=== PATIENT | male | born 1995 | race Caucasian/White ===

== ENCOUNTER 2016-05-15 04:40 | Emergency (ER) | payer OTHER ==
[~2016-05-15] VITALS: Ht 167.6 cm; Wt 108.8 kg
[~2016-05-15 04:40] MED LIST: IBUP-1277 PO
[2016-05-15 04:44] VITALS: TEMP 36.9; O2SAT 100; Ht 167.6 cm; Wt 108.8 kg
[2016-05-15] MEDS ORDERED: SODIUM CHLORIDE 0.9% 1000ML 1,000 ML IV STA (04:58)
[2016-05-15] MEDS ORDERED: ONDANSETRON INJ 2 MG/ML 2 ML VIAL IV STA (04:58)
--- NOTE | 2016-05-15 05:14 | EMERGENCY ROOM VISIT NOTE ---
History Report prepared by Angela: Audi Glynn Under the Supervision of: Dr. Tucker Diaz M.D. First contact with patient: 04:48 Chief Complaint: VOMITING Stated Complaint: VOMITING, PAIN Nursing Triage Summary: Pt ate [employer] food and a sub yesterday. Pt started having epigastric pain. He usually vomits and feels better but he's vomited several time and it doesn't feel better. History of Present Illness The patient is a 21 year old male who presents to the Emergency Room with complaints of persistent vomiting that began 11.5 hours prior to arrival. The patient states that he began to vomit and experience pain under his right ribs this evening at 1750. He denies having any diarrhea, and has not observed any blood in the vomit. The patient notes that he experiences vomiting intermittently, and last experienced an episode of this type 6 months ago. This episode is lasting much longer than they have in the past. Source of History: patient Onset: 11.5 hours [employer] P[employer] Position: other (Gastrointestinal ) Quality: other (Vomiting) Timing: other (Persistent) Associated Symptoms: + abdominal pain, No diarrhea Review of Systems See HPI for pertinent positives & negatives. A total of 10 systems reviewed and were otherwise negative. Past Medical & Surgical No pertinent past medical/surgical histories were recorded. Family History No pertinent family histories were recorded. Social History Smoking Status: Former Smoker Marital Status: single Housing Status: lives with family Occupation Status: employed Current/Historical Medications Scheduled Ondasetron Odt (Zofran Odt), 4 MG SL Q6H Allergies Coded Allergies: No Known Allergies (Unverified , NONE, 05/15/16) Physical Exam Vital Signs Date Time Temp Pulse Resp B/P Pulse Ox O2 Delivery O2 Flow Rate FiO2 05/15/16 06:33 95 16 168/109 Room Air 05/15/16 05:37 73 05/15/16 04:44 36.9 93 16 159/102 100 Room Air Physical Exam GENERAL: Patient is a healthy-appearing well-nourished HEAD: Normocephalic atraumatic EYES: Ocular movements intact pupils equal and react to light OROPHARYNX mucous membranes are moist no exudates present no erythema or edema present NECK: Supple no nuchal rigidity CHEST: Good equal expansion LUNGS: Clear and equal to auscultation CARDIAC: Normal S1 and S2 ABDOMEN: Soft nontender no guarding BACK: No CVA tenderness EXTREMITIES: No pain upon palpation normal muscle strength in all groups no clubbing cyanosis or edema NEURO: Patient is following commands is answering questions appropriately. Alert and oriented x3 Cranial Nerves 2-12 grossly intact Medical Decision & Procedures Laboratory Results 05/15/16 05:00 Red Blood Count 5.56, Mean Corpuscular Volume 80.6, Mean Corpuscular Hemoglobin 28.8, Mean Corpuscular Hemoglobin Concent 35.7, Mean Platelet Volume 9.8, Neutrophils (%) (Auto) 90.8, Lymphocytes (%) (Auto) 6.4, Monocytes (%) (Auto) 2.5, Eosinophils (%) (Auto) 0.0, Basophils (%) (Auto) 0.1, Neutrophils # (Auto) 12.10, Lymphocytes # (Auto) 0.86, Monocytes # (Auto) 0.34, Eosinophils # (Auto) 0.00, Basophils # (Auto) 0.01 05/15/16 05:00 Test 05/15/16 05:00 White Blood Count 13.34 K/uL (4.8-10.8) Red Blood Count 5.56 M/uL (4.7-6.1) Hemoglobin 16.0 g/dL (14.0-18.0) Hematocrit 44.8 % (42-52) Mean Corpuscular Volume 80.6 fL (80-100) Mean Corpuscular Hemoglobin 28.8 pg (25-34) Mean Corpuscular Hemoglobin Concent 35.7 g/dl (32-36) Platelet Count 229 K/uL (130-400) Mean Platelet Volume 9.8 fL (7.4-10.4) Neutrophils (%) (Auto) 90.8 % Lymphocytes (%) (Auto) 6.4 % Monocytes (%) (Auto) 2.5 % Eosinophils (%) (Auto) 0.0 % Basophils (%) (Auto) 0.1 % Neutrophils # (Auto) 12.10 K/uL (1.4-6.5) Lymphocytes # (Auto) 0.86 K/uL (1.2-3.4) Monocytes # (Auto) 0.34 K/uL (0.11-0.59) Eosinophils # (Auto) 0.00 K/uL (0-0.5) Basophils # (Auto) 0.01 K/uL (0-0.2) RDW Standard Deviation 38.4 fL (36.4-46.3) RDW Coefficient of Variation 13.3 % (11.5-14.5) Immature Granulocyte % (Auto) 0.2 % Immature Granulocyte # (Auto) 0.03 K/uL (0.00-0.02) Anion Gap 10.0 mmol/L (3-11) Est Creatinine Clear Calc Drug Dose 136.3 ml/min Estimated GFR () 125.0 Estimated GFR (Non- 107.9 BUN/Creatinine Ratio 13.2 (10-20) Calcium Level 9.6 mg/dl (8.5-10.1) Total Bilirubin 0.9 mg/dl (0.2-1) Direct Bilirubin 0.3 mg/dl (0-0.2) Aspartate Amino Transf (AST/SGOT) 26 U/L (15-37) Alanine Aminotransferase (ALT/SGPT) 50 U/L (12-78) Alkaline Phosphatase 68 U/L (45-117) Total Protein 8.3 gm/dl (6.4-8.2) Albumin 4.8 gm/dl (3.4-5.0) Lipase 147 U/L (73-393) Labs reviewed by ED physician. Medications Administered Medications (Trade) Dose Ordered Sig/Nick Route Start Time Stop Time Status Last Admin Dose Admin Sodium Chloride (Nss 1000ml) 1,000 ml @ 999 mls/hr Q1H1M STAT IV 05/15/16 04:58 05/15/16 05:58 DC 05/15/16 05:17 999 MLS/HR Ondansetron HCl (Zofran Inj) 4 mg NOW STAT IV 05/15/16 04:58 05/15/16 05:00 DC 05/15/16 05:17 4 MG Ondansetron HCl (ZOFRAN ODT 4MG Home Pack) 1 homepack UD ONCE PO 05/15/16 06:30 05/15/16 06:31 DC 05/15/16 06:38 1 HOMEPACK ECG Indication: vomiting Rate (beats per minute): 92 Rhythm: normal sinus Findings: no acute ischemic change, no ectopy ED Course 0447: This patient was evaluated and HPI was obtained by the Medical Student prior to my evaluation. 0456: Past medical records reviewed. The patient was evaluated in room B10. A complete history and physical examination was performed. 0458: Ordered Zofran 4 mg IV, Sodium Chloride 1000 mL @ 999 mL/hr IV. 0556: Patient is keeping down a Gatorade at this time. 0630: Ordered Zofran 1 homepack PO. 0632:Upon reexamination the patient is resting comfortably in bed and continuing to keep down fluids. I discussed results and treatment plan with the patient. She verbalizes agreement and understanding. The patient is ready for discharge. Medical Decision The patient's history was concerning for nausea, vomiting, diarrhea, and abdominal pain. Differential diagnosis: Etiologies such as gastroenteritis, food borne illness, infections, appendicitis , diverticulitis, inflammatory bowel disease, obstruction, GI bleed, biliary pathology, as well as others were entertained. This is a 21-year-old male who presents emergency department complaining of nonstop vomiting. The patient reports she's had episodes like this before. An IV was established, patient given normal saline bolus, 4 mg Zofran. He does have an elevation in his white blood count which I believe would be consistent with vomiting. Serial abdominal examinations were performed on the patient while he was in the emergency department and at no tender the patient exhibited abdominal tenderness or surgical abdomen. After some time the patient was trialed with fluids. He was able to keep these down. The patient's abdominal exam remained benign. Based on these findings I feel the patient can be safely discharged home. Impression Primary Impression: Acute gastritis Scribe Attestation The scribe's documentation has been prepared under my direction and personally reviewed by me in its entirety. I confirm that the note above accurately reflects all work, treatment, procedures, and medical decision making performed by me. Departure Information Dispostion Home / Self-Care Prescriptions Ondasetron Odt (ZOFRAN ODT) 4 Mg Tab 4 MG SL Q6H for Nausea, #6 TAB Prov: Tucker Diaz MD 05/15/16 Referrals Jose L Jacobo M.D. (PCP) Forms HOME CARE DOCUMENTATION FORM, IMPORTANT VISIT INFORMATION Patient Instructions My [facility] Additional Instructions You have been examined and treated today on an emergency basis only. This is not a substitute for, or an effort to provide, complete comprehensive medical care. It is impossible to recognize and treat all injuries or illnesses in a single emergency department visit. It is therefore important that you follow up closely with Dr Jacobo. Call as soon as possible for an appointment. Thank you for your time and consideration. I look forward to speaking with you again soon. Please don't hesitate to call us if you have any questions. Problem Qualifiers Primary Impression: Acute gastritis Gastritis type: unspecified gastritis Gastritis bleeding: without bleeding Qualified Codes: K29.00 - Acute gastritis without bleeding
[2016-05-15 05:17] LABS: BASO % 0.1 %; BASO ABS # 0.01 K/uL (0-0.2); COMPLETE YES; HEMATOCRIT 44.8 % (42-52); IG% 0.2 %; LYMPH % 6.4 %; LYMPH ABS # 0.86 K/uL (1.2-3.4); MEAN CELL VOLUME 80.6 fL (80-100); MEAN CORPUSCULAR HEMOGLOBIN 28.8 pg (25-34); MEAN CORPUSCULAR HGB CONC 35.7 g/dl (32-36); MEAN PLATELET VOLUME 9.8 fL (7.4-10.4); MONO % 2.5 %; NEUT % 90.8 %; PLATELET COUNT 229 K/uL (130-400); RED BLOOD COUNT 5.56 M/uL (4.7-6.1); WHITE BLOOD COUNT 13.34 K/uL (4.8-10.8)
[2016-05-15 05:34] LABS: BUN/CREATININE RATIO 13.2 (10-20); CALCIUM 9.6 mg/dl (8.5-10.1); POTASSIUM 4.1 mmol/L (3.5-5.1)
[2016-05-15] MEDS ORDERED: ONDA4TAB10 SL (06:19)
[2016-05-15] MEDS ORDERED: ONDANSETRON HOME PACK 4MG OD TAB PO ONE (06:30)
[2016-05-15 06:33] VITALS: BP 168/109; PULSE 95
== END 2016-05-15 06:41 | disposition home or self-care (01) ==
LOC: C.EDB 04:41
DX: K29.00 Acute gastritis without bleeding (principal); Z87.891 Personal history of nicotine dependence

== ENCOUNTER 2024-07-05 00:16 | Observation (INO) ==
--- NOTE | 2024-07-05 00:59 | Emergency Department Note ---
Impression & Plan Acute cholecystitis Admit ED Provider Note NAME: WYATT JANSEN AGE: 29 SEX: Male INFORMANT: Patient and family ED PROVIDER(S): Babar Go MD CHIEF COMPLAINT: Abdominal pain PLAN: Disposition: Admitted Outpatient prescription management: none Referral: None MEDICAL DECISION MAKING: Patient presented from outside institution with findings consistent with cholecystitis. Patient was evaluated. He was asymptomatic. He was noted to be moderately hypertensive but had no concerning symptoms. He notes that he was on blood pressure medication but had stopped it after the prescription ran out. I did have the [facility] clinical manager his epic chart and the 5 mg medication he alluded to was amlodipine. Patient was given this dose in the ER. He declined analgesia. Patient had an unremarkable CBC and chemistry panel except for slightly elevated bilirubin. General surgery was consulted and requested MRCP and the patient will be admitted under Dr. Starkey's service. Patient was evaluated in the ER and admitted for further management. Despite the oral amlodipine the patient was still hypertensive. I did message Dr. Lalito Pat's BRITANY and discussed a medicine consultation so that he is appropriate for surgery. She also had ordered hydralazine and is following the patient. Care/management discussed with: self storage manager Level of care consideration(s): After review of the information above and other included data, I feel the patient requires escalation of care to admission Triage Nursing notes: reviewed and agree them. Vital Signs: reviewed and remarkable for hypertension Additional History obtained from: Patient's family. Gallbladder problems are common with other family members. Chronic Medical/Social Conditions affecting care: Hypertension Prior/ Outside/ External records reviewed: Outside ED records reviewed from the [facility] from 10/04/2024. The patient had a CT scan and ultrasound consistent with cholecystitis. He had a leukocytosis. Patient did receive IV Rocephin. Differential Diagnosis: Cholecystitis, renal colic, UTI, appendicitis, diverticulitis, mesenteric ischemia, aortic pathology, infections, inflammatory bowel disease, PUD, as well as other pathologies. Diagnostics, independently interpreted by me: ECG: none Cardiac Monitoring: none Medical decision rules: none Imaging studies: Deferred. HPI: 29 year old Male arrives for evaluation of abdominal pain. This started yesterday and is in the right upper quadrant. The patient also notes the following associated symptoms, nausea and vomiting. The patient has seen at the time in hospital and diagnosed with cholecystitis and treated with Toradol and Rocephin for relieving factors. Current pain is rated as 2/10. Patient declines analgesia. The [facility] did contact Dr. Starkey of surgery here and the patient was accepted for transfer. There was an issue with transportation and the patient was signed out AMA and came private vehicle to the ER. Pt denies LOC, headache, flulike symptoms, visual changes, neck pain, chest pain, breathing difficulties, back pain, melena, hematochezia, urinary symptoms, rash, or other complaints.. PAST MEDICAL HISTORY: See Below, umbilical hernia PAST SURGICAL HISTORY: See Below, umbilical hernia repair SOCIAL HISTORY: See Below, smoker HOME MEDICATIONS: See Below ALLERGIES: See Below VITALS: See Below PHYSICAL EXAMINATION: GENERAL: Awake, alert, well-appearing, in no distress HENT: Normocephalic, atraumatic. Oropharynx unremarkable. EYES: Normal conjunctiva. Sclera non-icteric. NECK: Inspection normal. Non-tender. Supple. No nuchal rigidity. FROM. No masses. RESPIRATORY: Clear to auscultation. No wheezes. No rales. Normal respiratory effort. CARDIAC: Normal rate. Normal rhythm. No murmurs. No rubs. Extremities warm and well perfused. Pulses equal. No JVD. GI: Soft, non-distended. Right upper quadrant tenderness to palpation. No rebound or guarding. No masses. RECTAL: Deferred. MUSCULOSKELETAL: Atraumatic. Chest examination reveals no tenderness. The back is symmetrical on inspection without obvious abnormality. There is no CVA tenderness to palpation. No joint edema. LOWER EXTREMITIES: Calves are equal size bilaterally and non-tender. No edema. No discoloration. NEURO: Normal sensorium. No sensory or motor deficits noted. SKIN: No rash or jaundice noted. PROCEDURES: none CRITICAL CARE: none OBSERVATION NOTE: none Past Med/Surg History Problem List (Updated 07/05/24 @ 00:59 by Babar Go MD) Acute cholecystitis (Acute) Umbilical bleeding (Acute) Social History Smoking Status: Current every day smoker Preferred Language: Ukrainian Feels Safe at Home: Yes Allergies Allergies Allergy/AdvReac Type Severity Reaction Status Date / Time No Known Allergies Allergy NONE Unverified 05/15/16 04:46 Results & Data (ED) Vital Signs Vital Signs - 24 hr 07/05/24 00:20 07/05/24 00:50 07/05/24 01:00 Temperature 36.4 C L Temperature Source Temporal Artery Scan Pulse Rate 88 84 72 Respiratory Rate 19 18 Respiratory Effort / Characteristics Non-Labored Spontaneous Respiratory Depth Normal Blood Pressure 198/120 H 186/117 H Blood Pressure Mean 146 147 Pulse Oximetry 98 97 Oxygen Delivery Method Room Air Sepsis Recent Fever Within 48 Hours No Sepsis New/Unexplained Change in Mental Status N/A Sepsis Action Taken by Nursing No Action Required Laboratory Data 07/05/24 00:42 07/05/24 00:42 Lab Results 07/05/24 Range/Units 00:42 WBC 10.24 (4.8-10.8) K/ul RBC 5.41 (4.70-6.10) M/uL Hgb 15.1 (14.0-18.0) g/dl Hct 45.5 (42.0-52.0) % MCV 84.1 (80.0-100.0) fL MCH 27.9 (25.0-34.0) pg MCHC 33.2 (32.0-36.0) g/dL RDW Std Deviation 42.6 (36.4-46.3) fL RDW Coeff of Boo 14.0 (11.5-14.5) % Plt Count 241 (130-400) K/uL MPV 9.6 (9.4-12.4) fL Immature Gran % (Auto) 0.3 % Neut % (Auto) 72.3 % Lymph % (Auto) 17.8 % [place] % (Auto) 9.2 % Eos % (Auto) 0.2 % Baso % (Auto) 0.2 % Neut # (Auto) 7.41 H (1.40-6.50) K/uL Lymph # (Auto) 1.82 (1.20-3.40) K/uL [place] # (Auto) 0.94 H (0.11-0.59) K/uL Eos # (Auto) 0.02 (0.00-0.50) K/uL Baso # (Auto) 0.02 (0.00-0.20) K/uL Immature Gran # (Auto) 0.03 (0.01-0.20) K/uL Sodium 138 (136-145) mmol/L Potassium 4.3 (3.5-5.1) mmol/L Chloride 101 (98-107) mmol/L Carbon Dioxide 30 (21-32) mmol/L Anion Gap 7 (3-11) BUN 11 (6-23) mg/dl Creatinine 0.97 (0.6-1.4) mg/dl Est Cr Clr Drug Dosing 138.0 ml/min eGFR 109.05 BUN/Creatinine Ratio 11.3 (10-20) Glucose 101 H (70-99(Fasting)) mg/dl Calcium 9.2 (8.6-10.3) mg/dl Total Bilirubin 1.4 H (0.2-1.0) mg/dl AST 23 (13-39) U/L ALT 28 (7-52) U/L Alkaline Phosphatase 49 (34-104) U/L Total Protein 7.2 (6.0-8.3) gm/dl Albumin 4.6 (3.4-5.0) gm/dl Globulin 2.6 (2.5-4.0) gm/dl Albumin/Globulin Ratio 1.8 (0.9-2) Lipase 39 (11-82) U/L Administered Medications Sodium Chloride (Nss) 1,000 mls @ 125 mls/hr IV .Q8H TERRY Stop: 07/06/24 00:44 Last Admin: 07/05/24 01:06 Dose: 125 mls/hr Documented By: DANILO Discontinued Medications Amlodipine Besylate (Amlodipine Besylate 5 Mg Tab) 5 mg PO NOW ONE Stop: 07/05/24 00:51 Last Admin: 07/05/24 01:05 Dose: 5 mg Documented By: DANILO Lorazepam (Lorazepam 2 Mg/1 Ml Vial) 0.5 mg IV NOW STA Stop: 07/05/24 01:28 Last Admin: 07/05/24 01:45 Dose: 0.5 mg Documented By: DANILO Discharge Plan Visit Data Chief Complaint: Abdominal Pain Stated Complaint: ABD PAIN,VOMITING ED Provider: Babar Go Discharge Problem: Acute cholecystitis Patient Disposition: Admitted As Inpatient Discharge Instructions Interventions: ED Discharge Assessment Last Done: 07/05/24 02:39
[2024-07-05] MEDS: amLODIPine BESYLATE 5 MG TAB PO ONE (01:05)
[2024-07-05] MEDS: SODIUM CHLORIDE 0.9% 1,000 ML IV SCH (01:06)
[2024-07-05 01:11] LABS: Basophils # (auto) 0.02 K/uL (0.00-0.20); Basophils % (auto) 0.2 %; Eosinophils # (auto) 0.02 K/uL (0.00-0.50); Eosinophils % (auto) 0.2 %; Hematocrit (blood only) 45.5 % (42.0-52.0); Hemoglobin 15.1 g/dl (14.0-18.0); Immature Granulocytes # (auto) 0.03 K/uL (0.01-0.20); Immature Granulocytes % (auto) 0.3 %; Lymphocytes # (auto) 1.82 K/uL (1.20-3.40); Lymphocytes % (auto) 17.8 %; Mean Corpuscular Hemoglobin 27.9 pg (25.0-34.0); Mean Corpuscular Hgb Conc 33.2 g/dL (32.0-36.0); Mean Corpuscular Volume 84.1 fL (80.0-100.0); Mean Platelet Volume 9.6 fL (9.4-12.4); Monocytes # (auto) 0.94 K/uL (0.11-0.59); Monocytes % (auto) 9.2 %; Neutrophils # (auto) 7.41 K/uL (1.40-6.50); Neutrophils % (auto) 72.3 %; Platelet Count 241 K/uL (130-400); RDW Standard Deviation 42.6 fL (36.4-46.3); Red Blood Count 5.41 M/uL (4.70-6.10); White Blood Count 10.24 K/ul (4.8-10.8)
[2024-07-05 01:13] LABS: Albumin Globulin Ratio 1.8 (0.9-2); Albumin Level 4.6 gm/dl (3.4-5.0); BUN Creatinine Ratio 11.3 (10-20); Bilirubin,Total 1.4 mg/dl (0.2-1.0); Calcium 9.2 mg/dl (8.6-10.3); Globulin 2.6 gm/dl (2.5-4.0); Potassium 4.3 mmol/L (3.5-5.1); Total Protein 7.2 gm/dl (6.0-8.3)
--- NOTE | 2024-07-05 01:38 | History & Physical Report ---
Date of Service July 05, 2024 Assessment & Plan (1) Acute cholecystitis: Plan: Patient is a 29-year-old male with concerns of acute cholecystitis . The patient found to have slightly elevated Tbili of 1.4. Will order an MRCP to further evaluate for choledocholithiasis, if positive will have to consult GI for possible ERCP. However if MRCP is negative will proceed with surgical intervention. For now the patient will be admitted to the surgical service to med/surg floor. Keep NPO for now, IV hydration, pain control, IV antibiotic coverage with Zosyn, and Zofran as needed for nausea. Will also trend LFTs. as above. MRCP neg for choledocholithiasis. discussed option/risks ( bleeding/infection/blood clots/injury to a bile duct or other organ etc...) questions answered. will proceed with lap kimo History of Present Illness Chief Complaint: Abdominal pain The patient is a 29-year-old male who presented from outside hospital for complaints of abdominal pain since Monday. The patient states his pain started shortly after eating a hamburger and the pain is located in his right upper quadrant and epigastric region. He states the pain has been persistent and does radiate into his back at times. He started with nausea and multiple episodes of vomiting that started yesterday. He was worked up at [facility] emergency room and imaging was consistent with acute cholecystitis and labs revealed an elevated WBC at 12.5 and elevated Tbili of 1.4. The patient original was going to be direct admitted however the patient preferred to come to our facility via private vehicle and not S so he had left [facility] emergency department AMA and presented to our emergency department. The patient was seen and evaluated early this morning, he is resting comfortably in bed and is nontoxic appearing. The patient is noted to be hypertensive however he states he gets elevated BP any time he's in a hospital/doctor's office. On exam is he tender in the RUQ otherwise has no signs of peritonitis. He denies any new onset of fevers, chills, CP, or SOB. The patient does have a surgical history of an umbilical hernia repair with mesh approximately 10 years ago. Allergies Allergy/AdvReac Type Severity Reaction Status Date / Time No Known Allergies Allergy NONE Unverified 07/05/24 07:22 Past Med/Surg History Problem List (Updated 07/05/24 @ 07:22 by Kristine Castro RN) Acute cholecystitis (Acute) Umbilical bleeding (Acute) Medical History (Updated 07/05/24 @ 07:22 by Kristine Castro RN) Hypertension Surgical History (Updated 07/05/24 @ 07:22 by Kristine Castro RN) History of umbilical hernia repair Social History Smoking Status: Current every day smoker Hx Alcohol Use: Yes Alcohol type: beer Hx Substance Use: No Preferred Language: Turkmen Communication Ability: Effective Cut Off Sawyer Log Required: No Beliefs That Will Affect Care: None Current Living Situation: Parent Feels Safe at Home: Yes Safety Concerns: Feels Safe At This Time Assistive Devices: Glasses Review of Systems Constitutional: no fever, no chills and no sweats Respiratory: no cough, no chest congestion and no wheezing Cardiovascular: no chest pain, no palpitations and no syncope Gastrointestinal: + abdominal pain, + nausea and + vomitin g Genitourinary: no dysuria, no difficulty urinating or no flank pain Physical Exam Constitutional: WD/WN, vitals as above Respiratory: normal respiratory effort, lungs clear to auscultation Cardiovascular: RRR, no murmur, no edema Gastrointestinal (Abdomen): Inspection/Auscultation: abdomen normal to inspection and normal bowel sounds; abdomen not distended Percussion/Palpation: + abdomen tender (TTP in RUQ and epigastric region) and abdomen soft; no guarding, abdomen not rigid and abdomen not firm Skin: no rashes, warm and dry Results & Data Results & Data Vital Signs (Past 12 Hours) Vital Signs Temp Pulse Resp BP Pulse Ox O2 Del Method 07/05/24 00:50 84 07/05/24 00:20 36.4 C L 88 19 198/120 H 98 Room Air Diagnostic Findings CT imaging from outside hospital reviewed with results of cholelithiasis with suspected acute cholecystitis, mild splenomegaly. Gallbladder US from outside hospital reviewed with results of distended gallbladder with multiple gallstones. Pericholecystic fluid and wall thickening of the gallbladder. Findings consistent with acute cholecystitis. Code Status & VTE Plan VTE Prophylaxis Plan VTE Prophylaxis will be ordered: Yes PG Care Time/CCT Total # of Minutes Spent Total Time Spent with Patient: Total time spent is greater than 50% in coordination of care (as documented) at patient's floor/unit and/or counseling patient: [place] [address] INT INP/OBS CARE MIN Patient Type New Medical Decision Making Straight Forward Diagnoses Acute cholecystitis K81.0
[2024-07-05] MEDS: LORazepam 2 MG/1 ML VIAL IV STA (01:45)
[2024-07-05] MEDS ORDERED: MoRPHine SULFATE 2 MG/ML CARP IV PRN ×2 (02:58)
[2024-07-05] MEDS ORDERED: ONDANSETRON INJ 2 MG/ML 2 ML VIAL IV PRN ×2 (02:58→07:32)
[2024-07-05] MEDS: hydrALAZINE HCL 20 MG/ML VIAL IV ONE (03:25)
[2024-07-05] MEDS: ACETAMINOPHEN 1,000 MG/100 ML VIAL IV SCH (03:25)
[2024-07-05] MEDS ORDERED: hydrALAZINE HCL 20 MG/ML VIAL IV PRN ×2 (03:39→06:56)
[2024-07-05] MEDS: 4.5GM X1 IV STA (04:02)
--- NOTE | 2024-07-05 04:45 | Magnetic Resonance Report ---
EXAM: MR MRCP CLINICAL HISTORY: eval for cholecystitis TECHNIQUE: Multiplanar multisequence magnetic resonance imaging of the abdomen without intravenous and with oral contrast. COMPARISON: None. FINDINGS: Liver: Normal size and morphology. Homogeneous signal intensity on T2-weighted images. No focal hepatic lesions. Gallbladder: Fairly distended gallbladder measures 125 mm in length The lumen of the gallbladder shows a low signal focus of 20 mm size, which represents a calculus Intermediate T2 weighted signals also seen within the lumen of the gallbladder suggests large [place] of the gallbladder appear edematous measuring 4.0 mm in thickness with pericholecystic mild to moderate fluid and fat stranding in the right hypochondrial region Bile Ducts: Intrahepatic and extrahepatic bile ducts are normal in caliber. Common bile duct is normal in caliber with no evidence of strictures or filling defects. No evidence of choledocholithiasis. Pancreas: Normal size and contour. Homogeneous signal intensity on T2-weighted images. No masses or cystic lesions. Pancreatic Duct: Pancreatic duct is normal in caliber. No evidence of ductal dilatation or filling defects. Spleen: Normal size and appearance. Homogeneous signal intensity. Kidneys: Normal size, shape, and position of both kidneys. Homogeneous signal intensity on T2-weighted images. No renal stones, masses, or hydronephrosis. Adrenal Glands: Normal size and morphology bilaterally. No adrenal masses. Surrounding Structures: Mild free fluid seen in the right hypochondrium and around the gall bladder Normal appearance of the visualized bowel loops. IMPRESSION: 1. Fairly distended gallbladder showing cholelithiasis with sludge, wall thickening and surrounding mild to moderate fluid suggests acute cholecystitis, needs clinical correlation. 2. Normal-appearing biliary ductal system showing no dilatation or choledocholithiasis. 3. Rest of the abdominal viscera appearing grossly unremarkable on this non-contrast study. Electronically signed by Rodríguez Flores 07-05-2024 04:45 AM
[2024-07-05] MEDS ORDERED: fentaNYL citrate PF 100 MCG/2 ML VIAL ONE ×2 (07:14→08:24)
[2024-07-05] MEDS ORDERED: ONDANSETRON INJ 2 MG/ML 2 ML VIAL ONE (07:14)
[2024-07-05] MEDS ORDERED: ROCURONIUM BROMIDE 10 MG/ML 5 ML VIAL IV ONE (07:14)
[2024-07-05] MEDS ORDERED: LIDOCAINE 2% 2 ML VIAL/AMP(20MG/ML) INFIL ONE (07:14)
[2024-07-05] MEDS ORDERED: DEXAMETHASONE SOD INJ 4 MG/ML VIAL ONE (07:14)
[2024-07-05] MEDS ORDERED: PROPOFOL IV EMULSION 10 MG/ML 20 ML VIAL IV ONE (07:14)
[2024-07-05] MEDS ORDERED: MIDAZOLAM HCL 1 MG/ML 2ML VIAL ONE (07:14)
[2024-07-05] MEDS ORDERED: LABETALOL HCL IV 5 MG/ML 20ML IV PRN (07:32)
[2024-07-05] MEDS ORDERED: FLUMAZENIL 0.1 MG/1 ML 10 ML VIAL IV PRN (07:32)
[2024-07-05] MEDS ORDERED: ATROPINE SULFATE 0.1 MG/ML 10ML SYR IV PRN (07:32)
[2024-07-05] MEDS ORDERED: ePHEDrine sulfate 50 MG/ML AMP IV PRN (07:32)
[2024-07-05] MEDS ORDERED: NALOXONE HCL 0.4 MG/1 ML VIAL/CARP IV PRN (07:32)
[2024-07-05] MEDS ORDERED: fentaNYL citrate PF 100 MCG/2 ML VIAL IV PRN (07:32)
[2024-07-05] MEDS ORDERED: HYDROmorphone INJ 1 MG/ML SYRINGE IV PRN (07:32)
[2024-07-05] MEDS ORDERED: PROMETHAZINE HCL 6.25 MG in SODIUM CHLORIDE 0.9% 50 ML IV PRN (07:32)
--- NOTE | 2024-07-05 07:32 | Anesthesiology Consultation ---
Date of Service July 05, 2024 Assessment & Plan Chart Review Chart Review: Acceptable Risk for Surgery and Patient NOT seen in Pre Admission Testing Consults Requested none ASA ASA3 Proposed Anesthesia Anesthesia Type: General Risk / Benefits Reviewed With: PT / POA / Parent / Guardian, Accepts Plan and Informed Consent Obtained History Surgery Operation Date: 07/05/24 07:50 Proposed Procedures p Laparoscopic Cholecystectomy - Tenzin Starkey, DO Height/Weight Height: 5 ft 6 in Weight: 119.4 kg Allergies Allergy/AdvReac Type Severity Reaction Status Date / Time No Known Allergies Allergy NONE Unverified 07/05/24 07:22 Medications Active Medications Generic Name Dose Route Start Last Admin Trade Name Freq PRN Reason Stop Dose Admin Sodium Chloride 1,000 mls @ 125 mls/hr 07/05/24 00:45 07/05/24 01:06 Nss IV 07/06/24 00:44 125 mls/hr .Q8H TERRY Administration Acetaminophen 1,000 mg in 100 mls @ 400 mls/hr 07/05/24 02:58 07/05/24 03:59 Ofirmev IV 07/08/24 02:57 Infused Q8H TERRY Infusion NPO Date Last Intake of Fluids: 07/04/24 Time Last Intake of Fluids: 16:00 Date Last Intake of Solids: 07/04/24 Time Last Intake of Solids: 16:00 Past Medical History Medical History Hypertension morbid obesity chews tobacco Exercise / Class Metabolic Activity II 4-5 Yardwork/Stairs/Walk up hill Past Surgical History Surgical History History of umbilical hernia repair Past Anesthesia History No Hx of Anesthesia Complications and No Family Hx of Anesthesia Complications History of PONV No Hx of PONV and No Hx of Motion Sickness Social History Smoking Status: Former smoker Hx Alcohol Use: Yes Alcohol type: beer alcohol intake frequency: holidays/special occasions only Hx Substance Use: No substance use type: does not use Physical Exam Vital Signs Last Vital Signs Temp 36.8 C 07/05/24 07:24 Pulse 83 07/05/24 07:24 Resp 18 07/05/24 07:24 BP 160/110 H 07/05/24 07:24 Pulse Ox 99 07/05/24 07:24 O2 Del Method Room Air 07/05/24 07:24 Constitutional + morbidly obese; no acute distress ENMT Mouth: no dentition abnormality Thyromental Distance: < 3.5 Finger Breadths Mallampati Class: III Neck normal visual inspection, trachea midline, + shortened thyromental distance, + short neck, + thick neck and + facial hair; neck extension not limited Respiratory normal respiratory effort Auscultation: lungs clear to auscultation bilaterally and + diminished lung sounds Cardiovascular Rate/Rhythm: regular rate and regular rhythm Heart Sounds: no murmur Vessels: no carotid bruit Musculoskeletal Spine: normal cervical ROM and no pain with cervical ROM Extremities: full ROM of extremities Neurologic moves all extremities Motor/Sensory: no sensory deficit Psychiatric Orientation: alert; + not oriented x 3 Testing Laboratory Results 07/05/24 00:42 07/05/24 00:42
[2024-07-05] MEDS ORDERED: ePHEDrine sulfate 50 MG/5 ML SYR ONE (08:11)
[2024-07-05] MEDS ORDERED: PHENYLEPHRINE 100MCG/ML 5ML SYR ONE (08:11)
[2024-07-05] MEDS ORDERED: SUCCINYLCHOLINE 100MG/5ML SYR IV ONE (08:30)
--- NOTE | 2024-07-05 08:47 | Consultation ---
Date of Consultation July 05, 2024 Assessment & Plan (1) Acute cholecystitis: 29-year-old male with past medical history significant for hypertension currently not on medication, morbid obesity presents with acute cholecystitis. Since Monday patient is having right-sided abdominal pain, seems the pain started after eating hamburger. Since Monday morning had several episodes of vomitings. Went to [facility] yesterday and found to have acute cholecystitis. Patient was supposed to be a direct admit but he signed out AMA and came to the ER. His blood pressure was very high in the ER and on the floor. In October 2023 patient was started on amlodipine and supposed to increase to 10 mg if blood pressure not controlled as per PCP notes. Patient says it was a trial and he took amlodipine for 30 days and stopped it. Denies any headache. No blurred visions or double vision. No runny nose or sore throat. No cough. Denies fevers. Denies chest pain. Denies shortness of breath. Pain is under control currently. Normal bowel and bladder movements. Resting comfortably. Acute cholecystitis MRCP shows cholecystitis Received Zosyn Plan for surgery Further antibiotics as per surgery Hypertension Restart home amlodipine IV hydralazine as needed Will follow echo and EKG Morbid obesity Counseling Nutrition follow-up DVT prophylaxis and disposition As per surgery History of Present Illness Reason for Consultation: Acute cholecystitis and hypertension Attending Physician: Tenzin Starkey, DO History of Present Illness 29-year-old male with past medical history significant for hypertension currently not on medication, morbid obesity presents with acute cholecystitis. Since Monday patient is having right-sided abdominal pain, seems the pain started after eating hamburger. Since Monday morning had several episodes of vomitings. Went to [facility] yesterday and found to have acute cholecystitis. Patient was supposed to be a direct admit but he signed out AMA and came to the ER. His blood pressure was very high in the ER and on the floor. In October 2023 patient was started on amlodipine and supposed to increase to 10 mg if blood pressure not controlled as per PCP notes. Patient says it was a trial and he took amlodipine for 30 days and stopped it. Denies any headache. No blurred visions or double vision. No runny nose or sore throat. No cough. Denies fevers. Denies chest pain. Denies shortness of breath. Pain is under control currently. Normal bowel and bladder movements. Resting comfortably. Past medical history. As mentioned above. Past surgical history. Umbilical hernia repair. Social history. Snuffs tobacco as per epic. Alcohol occasional. No drug use. Family history. Mother has hypertension. Allergies Allergy/AdvReac Type Severity Reaction Status Date / Time No Known Allergies Allergy NONE Unverified 07/05/24 07:22 Patient History Medical History Hypertension Surgical History History of umbilical hernia repair Social History Smoking Status: Former smoker Hx Alcohol Use: Yes Alcohol type: beer Hx Substance Use: No Preferred Language: [place] Communication Ability: Effective International Operations Manager Required: No Beliefs That Will Affect Care: None Current Living Situation: Parent Feels Safe at Home: Yes Safety Concerns: Feels Safe At This Time Assistive Devices: Glasses Review of Systems Review of Systems: All systems reviewed & are unremarkable except as noted in HPI & below Physical Exam Physical Exam: General- Not in distress. Head- atraumatic Eyes- EOMI. ENT- oropharynx clear Neck- supple, no JVD. Lungs- clear to auscultation no wheezing or crackles Heart- regular rate and rhythm; no murmur, no gallop. Abdomen- normal bowel sounds, soft, nontender, no distension Extremities- no pretibial edema, no erythema seen Neuro- alert, oriented no facial palsy; no dysarthria; moves extremities Results & Data Vital Signs (Past 12 Hours) Vital Signs Temp Pulse Pulse Resp BP BP Pulse Ox 07/05/24 04:06 36.8 C 84 18 133/78 95 07/05/24 03:07 36.8 C 89 16 199/134 H 97 07/05/24 02:37 78 20 195/116 H 99 07/05/24 01:00 72 18 186/117 H 97 07/05/24 00:50 84 07/05/24 00:20 36.4 C L 88 19 198/120 H 98 O2 Del Method 07/05/24 04:06 Room Air 07/05/24 03:07 Room Air 07/05/24 02:37 07/05/24 01:00 07/05/24 00:50 07/05/24 00:20 Room Air Diagnostic Findings Laboratory Results WBC 10.24 K/ul (4.8-10.8) 07/05/24 00:42 RBC 5.41 M/uL (4.70-6.10) 07/05/24 00:42 Hgb 15.1 g/dl (14.0-18.0) 07/05/24 00:42 Hct 45.5 % (42.0-52.0) 07/05/24 00:42 MCV 84.1 fL (80.0-100.0) 07/05/24 00:42 MCH 27.9 pg (25.0-34.0) 07/05/24 00:42 MCHC 33.2 g/dL (32.0-36.0) 07/05/24 00:42 RDW Std Deviation 42.6 fL (36.4-46.3) 07/05/24 00:42 RDW Coeff of [place]bo 14.0 % (11.5-14.5) 07/05/24 00:42 Plt Count 241 K/uL (130-400) 07/05/24 00:42 MPV 9.6 fL (9.4-12.4) 07/05/24 00:42 Immature Gran % (Auto) 0.3 % 07/05/24 00:42 Neut % (Auto) 72.3 % 07/05/24 00:42 Lymph % (Auto) 17.8 % 07/05/24 00:42 [place] % (Auto) 9.2 % 07/05/24 00:42 Eos % (Auto) 0.2 % 07/05/24 00:42 Baso % (Auto) 0.2 % 07/05/24 00:42 Neut # (Auto) 7.41 K/uL (1.40-6.50) H 07/05/24 00:42 Lymph # (Auto) 1.82 K/uL (1.20-3.40) 07/05/24 00:42 [place] # (Auto) 0.94 K/uL (0.11-0.59) H 07/05/24 00:42 Eos # (Auto) 0.02 K/uL (0.00-0.50) 07/05/24 00:42 Baso # (Auto) 0.02 K/uL (0.00-0.20) 07/05/24 00:42 Immature Gran # (Auto) 0.03 K/uL (0.01-0.20) 07/05/24 00:42 Sodium 138 mmol/L (136-145) 07/05/24 00:42 Potassium 4.3 mmol/L (3.5-5.1) 07/05/24 00:42 Chloride 101 mmol/L (98-107) 07/05/24 00:42 Carbon Dioxide 30 mmol/L (21-32) 07/05/24 00:42 Anion Gap 7 (3-11) 07/05/24 00:42 BUN 11 mg/dl (6-23) 07/05/24 00:42 Creatinine 0.97 mg/dl (0.6-1.4) 07/05/24 00:42 Est Cr Clr Drug Dosing 138.0 ml/min 07/05/24 00:42 eGFR 109.05 07/05/24 00:42 BUN/Creatinine Ratio 11.3 (10-20) 07/05/24 00:42 Glucose 101 mg/dl (70-99(Fasting)) H 07/05/24 00:42 Calcium 9.2 mg/dl (8.6-10.3) 07/05/24 00:42 Total Bilirubin 1.4 mg/dl (0.2-1.0) H 07/05/24 00:42 AST 23 U/L (13-39) 07/05/24 00:42 ALT 28 U/L (7-52) 07/05/24 00:42 Alkaline Phosphatase 49 U/L (34-104) 07/05/24 00:42 Total Protein 7.2 gm/dl (6.0-8.3) 07/05/24 00:42 Albumin 4.6 gm/dl (3.4-5.0) 07/05/24 00:42 Globulin 2.6 gm/dl (2.5-4.0) 07/05/24 00:42 Albumin/Globulin Ratio 1.8 (0.9-2) 07/05/24 00:42 Lipase 39 U/L (11-82) 07/05/24 00:42 Impressions Cholangiopancreatography MRI 07/05/24 00:35 EXAM: MR MRCP CLINICAL HISTORY: eval for cholecystitis TECHNIQUE: Multiplanar multisequence magnetic resonance imaging of the abdomen without intravenous and with oral contrast. COMPARISON: None. FINDINGS: Liver: Normal size and morphology. Homogeneous signal intensity on T2-weighted images. No focal hepatic lesions. Gallbladder: Fairly distended gallbladder measures 125 mm in length The lumen of the gallbladder shows a low signal focus of 20 mm size, which represents a calculus Intermediate T2 weighted signals also seen within the lumen of the gallbladder suggests large [place] of the gallbladder appear edematous measuring 4.0 mm in thickness with pericholecystic mild to moderate fluid and fat stranding in the right hypochondrial region Bile Ducts: Intrahepatic and extrahepatic bile ducts are normal in caliber. Common bile duct is normal in caliber with no evidence of strictures or filling defects. No evidence of choledocholithiasis. Pancreas: Normal size and contour. Homogeneous signal intensity on T2-weighted images. No masses or cystic lesions. Pancreatic Duct: Pancreatic duct is normal in caliber. No evidence of ductal dilatation or filling defects. Spleen: Normal size and appearance. Homogeneous signal intensity. Kidneys: Normal size, shape, and position of both kidneys. Homogeneous signal intensity on T2-weighted images. No renal stones, masses, or hydronephrosis. Adrenal Glands: Normal size and morphology bilaterally. No adrenal masses. Surrounding Structures: Mild free fluid seen in the right hypochondrium and around the gall bladder Normal appearance of the visualized bowel loops. IMPRESSION: 1. Fairly distended gallbladder showing cholelithiasis with sludge, wall thickening and surrounding mild to moderate fluid suggests acute cholecystitis, needs clinical correlation. 2. Normal-appearing biliary ductal system showing no dilatation or choledocholithiasis. 3. Rest of the abdominal viscera appearing grossly unremarkable on this non-contrast study. Electronically signed by Rodríguez Flores 07-05-2024 04:45 AM
[2024-07-05] MEDS ORDERED: KETOROLAC 30 MG/ML VIAL ONE (08:56)
[2024-07-05] MEDS ORDERED: SUGAMMADEX SODIUM 200 MG/2 ML VIAL IV ONE (08:58)
[2024-07-05] MEDS: BUPIVACAINE/EPINEPHRINE 0.5% MPF 1:200,000 30 ML VIAL ONE (09:01)
--- NOTE | 2024-07-05 09:22 | Operative Report ---
PG Post Operative Report Pre & Post Diagnosis Operation Date: 07/05/24 07:50 Pre-Op Diagnosis: Acute cholecystitis Post-Op Diagnosis: Acute cholecystitis I identified the patient and participated in the time-out.: Yes Procedure Operation Date: 07/05/24 07:50 Actual Procedures p Laparoscopic Cholecystectomy(Not Applicable) - Tenzin Starkey DO Surgeon Tenzin Starkey DO Word Processor Operator OR staff Estimated Blood Loss 20 Findings Consistent with Post-Op Diagnosis Specimens gallbladder Description of Procedure After informed consent was obtained the patient was taken to the operating room and placed in the supine position. After successful intubation the abdomen was sterilely prepped and draped in usual fashion. A periumbilical incision was made with an 11 blade scalpel and carried down through the soft tissue using electrocautery. The anterior rectus fascia was opened using electrocautery and 2 #0 Vicryl stay sutures were placed. The peritoneum was elevated with hemostats and incised under direct vision using Metzenbaum scissors. A finger sweep was performed and a 12 mm Ruiz trocar was placed. The abdomen was insufflated to 18 mmHg. The laparoscope was inserted and the abdomen was examined in 360. The gallbladder was acutely inflamed but otherwise no gross abnormalities were identified. A subxiphoid 5 mm port and 2 right upper quadrant 5 mm ports were placed under direct vision. The patient was placed in a reverse Trendelenburg position and slightly airplaned to the left. Initially the gallbladder was too inflamed to grasp. I therefore used a gallbladder needle to drain about 20 cc of very thick purulent bile. The gallbladder was grasped and elevated superiorly and laterally. A [place] dissector was used to take down adhesions around the neck of the gallbladder. The cystic duct was identified and skeletonized. It was clipped twice proximally and once distally and transected using a laparoscopic scissor. In similar fashion the cystic artery was identified and skeletonized clipped and divided. The gallbladder was removed from the gallbladder fossa with electrocautery. It was placed into an Endo Catch bag. Thorough irrigation was performed. At the end of the procedure there was adequate hemostasis and no evidence of any bile leaks. A final look around the abdomen showed no other abnormalities. I removed all the trocars under direct vision. I had to extend the fascial incision to be able to remove the gallbladder/bag. The fascia of the camera port was closed using 0 Vicryl in a simple interrupted fashion. All the wounds were irrigated and closed using 4- 0 Monocryl. Marcaine was injected around them for postoperative analgesia and skin glue used as a dressing. The patient was awakened extubated and transferred to recovery in stable condition. I attest to the content of the Intraoperative Record and any orders documented therein. Any exceptions are noted below.
--- NOTE | 2024-07-05 10:02 | Anesthesiology Progress Note ---
Date of Service July 05, 2024 Anesthesia Post Procedure Vital Signs Vital Signs: Temp Pulse Pulse Pulse Resp BP BP 07/05/24 09:50 83 18 124/71 07/05/24 09:40 87 16 127/72 07/05/24 09:31 36.5 C 92 H 15 112/67 07/05/24 07:24 36.8 C 83 18 160/110 H 07/05/24 04:06 36.8 C 84 18 133/78 07/05/24 03:07 36.8 C 89 16 199/134 H 07/05/24 02:37 78 20 195/116 H 07/05/24 01:00 72 18 186/117 H 07/05/24 00:50 84 07/05/24 00:20 36.4 C L 88 19 198/120 H Pulse Ox O2 Del Method O2 Flow Rate 07/05/24 09:50 98 Oxymask 3 07/05/24 09:40 98 Oxymask 6 07/05/24 09:31 97 Oxymask 6 07/05/24 07:24 99 Room Air 07/05/24 04:06 95 Room Air 07/05/24 03:07 97 Room Air 07/05/24 02:37 99 07/05/24 01:00 97 07/05/24 00:50 07/05/24 00:20 98 Room Air Pain Intensity Abdomen: Pain Intensity: 3 Transfer of Care Handoff Completed per policy Notes Mental Status: alert / awake / arousable Patient Amnestic to Procedure: Yes Nausea / Vomiting: adequately controlled Pain: adequately controlled Airway Patency, RR, SpO2: stable & adequate BP & HR: stable & adequate Hydration State: stable & adequate Anesthetic Complications: no major complications apparent
[2024-07-05] MEDS ORDERED: oxyCODONE HCL IR 5 MG TAB (IMMEDIATE RELEASE) PO PRN ×2 (10:27)
[2024-07-05] MEDS: PIPERACILLIN/TAZOBACTAM 4.5 GM/100 ML BAG IV SCH (10:28)
[2024-07-05] MEDS: amLODIPine BESYLATE 5 MG TAB PO SCH (10:50)
[2024-07-05] MEDS: LACTATED RINGER'S 1,000 ML IV SCH (10:50)
[2024-07-05 12:14] LABS: Albumin Globulin Ratio 1.7 (0.9-2); Albumin Level 4.5 gm/dl (3.4-5.0); BUN Creatinine Ratio 12.6 (10-20); Bilirubin,Total 1.7 mg/dl (0.2-1.0); Creatinine Clr Calc Pharmacy 153.8 ml/min; Globulin 2.7 gm/dl (2.5-4.0); Potassium 4.3 mmol/L (3.5-5.1); Total Protein 7.2 gm/dl (6.0-8.3)
[2024-07-05 12:24] LABS: Hematocrit (blood only) 46.2 % (42.0-52.0); Hemoglobin 15.2 g/dl (14.0-18.0); Mean Corpuscular Hemoglobin 27.4 pg (25.0-34.0); Mean Corpuscular Hgb Conc 32.9 g/dL (32.0-36.0); Mean Corpuscular Volume 83.4 fL (80.0-100.0); Mean Platelet Volume 9.4 fL (9.4-12.4); Platelet Count 222 K/uL (130-400); RDW Coefficient of Variation 13.9 % (11.5-14.5); RDW Standard Deviation 42.5 fL (36.4-46.3); Red Blood Count 5.54 M/uL (4.70-6.10); White Blood Count 9.48 K/ul (4.8-10.8)
[2024-07-05 12:28] LABS: Appearance Urine Clear (Clear); Bilirubin Urine Negative (Negative); Blood Urine Negative (Negative); Color Urine Yellow; Glucose Urine UA Negative (Negative); Ketones Urine 1+ (Negative); Leukocyte Esterase Urine Negative (Negative); Nitrite Urine Negative (Negative); Protein Urine Negative (Negative); Specific Gravity Urine 1.014 (1.000-1.030); Urobilinogen Urine Negative (Negative); pH Urine 7.5 (4.5-7.5)
[2024-07-05 12:43] LABS: ALC (manual) 0.19 K/uL (1.2-3.4); ANC (manual) 8.72 K/uL (1.4-6.5); Lymphocytes # (manual) 0.19 K/uL (1.2-3.4); Lymphocytes % (manual) 2 %; Monocytes # (manual) 0.57 K/uL (0.11-0.59); Monocytes % (manual) 6 %; Neutrophils # (manual) 8.72 K/uL (1.40-6.50); Neutrophils % (manual) 92 %; RBC Morphology Unremarkable
--- NOTE | 2024-07-05 19:14 | Electrocardiogram Report ---
Test Reason : Blood Pressure : */* mmHG Vent. Rate : 81 BPM Atrial Rate : 81 BPM P-R Int : 130 ms QRS Dur : 76 ms QT Int : 372 ms P-R-T Axes : 32 -25 14 degrees QTcB Int : 432 ms Normal sinus rhythm Voltage criteria for left ventricular hypertrophy Abnormal ECG When compared with ECG of 15-May-2016 05:37, No significant change was found Confirmed by Michele Carlson ([id number]) on 07/05/2024 7:14:20 PM Referred By: REFERRED SELF Confirmed By: Michele Carlson
[2024-07-06 06:32] LABS: Basophils # (auto) 0.02 K/uL (0.00-0.20); Basophils % (auto) 0.2 %; Eosinophils # (auto) 0.01 K/uL (0.00-0.50); Eosinophils % (auto) 0.1 %; Hematocrit (blood only) 41.1 % (42.0-52.0); Hemoglobin 13.8 g/dl (14.0-18.0); Immature Granulocytes # (auto) 0.04 K/uL (0.01-0.20); Immature Granulocytes % (auto) 0.4 %; Lymphocytes # (auto) 1.65 K/uL (1.20-3.40); Lymphocytes % (auto) 16.4 %; Mean Corpuscular Hemoglobin 28.1 pg (25.0-34.0); Mean Corpuscular Hgb Conc 33.6 g/dL (32.0-36.0); Mean Corpuscular Volume 83.7 fL (80.0-100.0); Mean Platelet Volume 9.4 fL (9.4-12.4); Monocytes # (auto) 0.94 K/uL (0.11-0.59); Monocytes % (auto) 9.4 %; Neutrophils # (auto) 7.38 K/uL (1.40-6.50); Neutrophils % (auto) 73.5 %; Platelet Count 220 K/uL (130-400); RDW Coefficient of Variation 13.9 % (11.5-14.5); RDW Standard Deviation 42.8 fL (36.4-46.3); Red Blood Count 4.91 M/uL (4.70-6.10); White Blood Count 10.04 K/ul (4.8-10.8)
[2024-07-06 07:02] LABS: Albumin Globulin Ratio 1.7 (0.9-2); BUN Creatinine Ratio 16.3 (10-20); Bilirubin,Total 1.1 mg/dl (0.2-1.0); Calcium 8.8 mg/dl (8.6-10.3); Creatinine Clr Calc Pharmacy 145.5 ml/min; Globulin 2.4 gm/dl (2.5-4.0); Magnesium 2.2 mg/dl (1.7-2.4); Potassium 3.9 mmol/L (3.5-5.1); Total Protein 6.4 gm/dl (6.0-8.3)
--- NOTE | 2024-07-06 07:26 | Surgery Progress Note ---
Date of Service July 06, 2024 Assessment & Plan (1) Acute cholecystitis: Plan: POD#1 lap kimo WBC 10, Hbg 13.8, LFTs show Tb 1.1 (1.7), AST 54, ALT 52. Vital signs are stable Pt feels well, pain controlled, tolerating a diet, no n/v. + flatus Would like to go home which we will plan for this AM Discussed with medicine on board for HTN, will send home with 2.5mg of amlodipine and close f/u with his pcp D/c instructions reviewed, f/u with dr. bird in 10-14 days time Admission and Anticipated Discharge Date Admission Date: July 05, 2024 Subjective Patient feeling well. Pain manageable. Tolerating a diet, no nausea/vomiting. Voiding and passing flatus. Physical Exam Physical Exam: awake/alert, no distress Respiratory: normal respiratory effort Gastrointestinal (Abdomen): Inspection/Auscultation: + abdominal surgical incision (c/d/i); abdomen not distended Results & Data Vital Signs (Past 12 Hours) Vital Signs Temp Pulse Resp BP Pulse Ox O2 Del Method 07/06/24 03:14 97.7 F 76 16 136/94 93 Room Air 07/05/24 22:41 97.8 F 86 16 124/72 94 Room Air 07/05/24 19:56 98.2 F 89 16 134/92 93 Room Air PG Care Time/CCT Total # of Minutes Spent Total Time Spent with Patient: Total time spent is greater than 50% in coordination of care (as documented) at patient's floor/unit and/or counseling patient: Coding Level of Care Code 93324 Post Operative Follow-Up Diagnoses Acute cholecystitis K81.0
--- NOTE | 2024-07-06 07:32 | Hospitalist Progress Note ---
Date of Service July 06, 2024 Assessment & Plan (1) Acute cholecystitis: Plan: 29-year-old male with past medical history significant for hypertension currently not on medication, morbid obesity presents with acute cholecystitis. Since Monday patient is having right-sided abdominal pain, seems the pain started after eating hamburger. Since Monday morning had several episodes of vomitings. Went to [facility] yesterday and found to have acute cholecystitis. Patient was supposed to be a direct admit but he signed out AMA and came to the ER. His blood pressure was very high in the ER and on the floor. In October 2023 patient was started on amlodipine and supposed to increase to 10 mg if blood pressure not controlled as per PCP notes. Patient says it was a trial and he took amlodipine for 30 days and stopped it. Denies any headache. No blurred visions or double vision. No runny nose or sore throat. No cough. Denies fevers. Denies chest pain. Denies shortness of breath. Pain is under control currently. Normal bowel and bladder movements. Resting comfortably. Acute cholecystitis MRCP shows cholecystitis Received Zosyn Pt admitted to surgical service and pt is s/p cholecystectomy Pt is doing well and plan for discharge Further antibiotics as per surgery Hypertension Restarted home amlodipine, will discharge on 2.5 mg daily. Advised pt to monitor BP at home. Need PCP follow up, will assist with that. Echo obtained - LV normal in size, Moderate concentric LVH, LV wall motion normal, LV EF 60-65%. There is no valvular disease. Aortic root is normal in size. Morbid obesity Counseling Nutrition follow-up DVT prophylaxis and disposition - As per surgery Admission and Anticipated Discharge Date Admission Date: July 05, 2024 Subjective Pt seen in follow up of med consult , pt seen for hypertension, now s/p cholecystectomy Currently lying in bed in NAD pain is controlled, he is feeling well, tolerating diet no fever, chills, chest pain, shortness of breath Review of Systems Review of Systems: All systems reviewed & are unremarkable except as noted in Subjective Physical Exam Physical Exam: General- morbidly obese young M in NAD Head- atraumatic Eyes- EOMI. Neck- supple, no JVD. Lungs- clear to auscultation no wheezing or crackles Heart- regular rate and rhythm; no murmur Abdomen- normal bowel sounds, soft, nontender, no distension Extremities- no pretibial edema, no erythema seen Neuro- alert, oriented no facial palsy; no dysarthria; moves extremities Results & Data Results & Data Vital Signs (Past 12 Hours) Vital Signs Temp Pulse Resp BP Pulse Ox O2 Del Method 07/06/24 03:14 36.5 C 76 16 136/94 93 Room Air 07/05/24 22:41 36.6 C 86 16 124/72 94 Room Air 07/05/24 19:56 36.8 C 89 16 134/92 93 Room Air Laboratory Results 07/06/24 07/05/24 07/05/24 Range/Units 06:07 12:00 11:38 WBC 10.04 9.48 (4.8-10.8) K/ul RBC 4.91 5.54 (4.70-6.10) M/uL Hgb 13.8 L 15.2 (14.0-18.0) g/dl Hct 41.1 L 46.2 (42.0-52.0) % MCV 83.7 83.4 (80.0-100.0) fL MCH 28.1 27.4 (25.0-34.0) pg MCHC 33.6 32.9 (32.0-36.0) g/dL RDW Std Deviation 42.8 42.5 (36.4-46.3) fL RDW Coeff of [place] 13.9 13.9 (11.5-14.5) % Plt Count 220 222 (130-400) K/uL MPV 9.4 9.4 (9.4-12.4) fL Immature Gran % (Auto) 0.4 % Neut % (Auto) 73.5 % Lymph % (Auto) 16.4 % [place] % (Auto) 9.4 % Eos % (Auto) 0.1 % Baso % (Auto) 0.2 % Neut # (Auto) 7.38 H (1.40-6.50) K/uL Lymph # (Auto) 1.65 (1.20-3.40) K/uL [place] # (Auto) 0.94 H (0.11-0.59) K/uL Eos # (Auto) 0.01 (0.00-0.50) K/uL Baso # (Auto) 0.02 (0.00-0.20) K/uL Immature Gran # (Auto) 0.04 (0.01-0.20) K/uL Neutrophils % (Manual) 92 % Lymphocytes % (Manual) 2 % Monocytes % (Manual) 6 % Neutrophils # (Manual) 8.72 H (1.40-6.50) K/uL Total Absolute Neuts 8.72 H (1.4-6.5) K/uL Lymphocytes # (Manual) 0.19 L (1.2-3.4) K/uL Total Abs Lymphocytes 0.19 L (1.2-3.4) K/uL Monocytes # (Manual) 0.57 (0.11-0.59) K/uL RBC Morphology Unremarkable Sodium 139 137 (136-145) mmol/L Potassium 3.9 4.3 (3.5-5.1) mmol/L Chloride 104 103 (98-107) mmol/L Carbon Dioxide 28 28 (21-32) mmol/L Anion Gap 7 6 (3-11) BUN 15 11 (6-23) mg/dl Creatinine 0.92 0.87 (0.6-1.4) mg/dl Est Cr Clr Drug Dosing 145.5 153.8 ml/min eGFR 116.20 120.53 BUN/Creatinine Ratio 16.3 12.6 (10-20) Glucose 96 120 H (70-99(Fasting)) mg/dl Calcium 8.8 9.0 (8.6-10.3) mg/dl Phosphorus 4.0 (2.5-4.9) mg/dl Magnesium 2.2 (1.7-2.4) mg/dl Total Bilirubin 1.1 H 1.7 H (0.2-1.0) mg/dl AST 54 H 42 H (13-39) U/L ALT 52 38 (7-52) U/L Alkaline Phosphatase 40 49 (34-104) U/L Total Protein 6.4 7.2 (6.0-8.3) gm/dl Albumin 4.0 4.5 (3.4-5.0) gm/dl Globulin 2.4 L 2.7 (2.5-4.0) gm/dl Albumin/Globulin Ratio 1.7 1.7 (0.9-2) Urine Color Yellow Urine Appearance Clear (Clear) Urine pH 7.5 (4.5-7.5) Ur Specific [place] 1.014 (1.000-1.030) Urine Protein Negative (Negative) Urine Glucose (UA) Negative (Negative) Urine Ketones 1+ H (Negative) Urine Blood Negative (Negative) Urine Nitrite Negative (Negative) Urine Bilirubin Negative (Negative) Urine Urobilinogen Negative (Negative) Ur Leukocyte Esterase Negative (Negative) Medications Administered Current Inpatient Medications Amlodipine Besylate (Amlodipine Besylate 5 Mg Tab) [facility] Stop: 08/04/24 08:59 Last Admin: 07/06/24 07:53 Dose: 5 mg Hydralazine HCl (Hydralazine Hcl 20 Mg/Ml Vial) 7.5 mg IV Q6H PRN PRN Reason: hypertension Stop: 08/04/24 03:44 Piperacillin Sod/Tazobactam Sod (Zosyn) 4.5 gm in 100 mls @ 25 mls/hr IV Q8H [facility]; Protocol Stop: 07/15/24 07:59 Last Admin: 07/06/24 07:52 Dose: 25 mls/hr Acetaminophen (Ofirmev) 1,000 mg in 100 mls @ 400 mls/hr IV Q8H [facility] Stop: 07/08/24 02:57 Last Infusion: 07/06/24 03:34 Dose: Infused Morphine Sulfate (Morphine Sulfate 2 Mg/Ml Carp) 1 mg IV Q3H PRN PRN Reason: Pain (1,2,3,4,5) & Pre PT Stop: 07/19/24 02:57 Morphine Sulfate (Morphine Sulfate 2 Mg/Ml Carp) 2 mg IV Q3H PRN PRN Reason: Pain (6,7,8,9,10) Stop: 07/19/24 02:57 Ondansetron HCl (Ondansetron Inj 2 Mg/Ml 2 Ml Vial) 4 mg IV Q4H PRN PRN Reason: Nausea And Vomiting Stop: 08/04/24 02:57 Oxycodone HCl (Oxycodone Hcl Ir 5 Mg Tab (Immediate Release)) 5 mg PO Q4H PRN PRN Reason: Moderate Pain (Scale 4, 5, 6) Stop: 07/19/24 10:26 Oxycodone HCl (Oxycodone Hcl Ir 5 Mg Tab (Immediate Release)) 10 mg PO Q4H PRN PRN Reason: Severe Pain (Scale 7, 8, 9,10) Stop: 07/19/24 10:26
[2024-07-06 07:40] VITALS: BP 147/89; PULSE 81; RESP 18; TEMP 97.9; O2SAT 96
--- NOTE | 2024-07-08 10:01 | Discharge Summary ---
Date of Service July 06, 2024 Admission HPI Per Admitting Provider The patient is a 29-year-old male who presented from outside hospital for complaints of abdominal pain since Monday. The patient states his pain started shortly after eating a hamburger and the pain is located in his right upper quadrant and epigastric region. He states the pain has been persistent and does radiate into his back at times. He started with nausea and multiple episodes of vomiting that started yesterday. He was worked up at [facility] emergency room and imaging was consistent with acute cholecystitis and labs revealed an elevated WBC at 12.5 and elevated Tbili of 1.4. The patient original was going to be direct admitted however the patient preferred to come to our facility via private vehicle and not BLS so he had left [facility] emergency department AMA and presented to our emergency department. The patient was seen and evaluated early this morning, he is resting comfortably in bed and is nontoxic appearing. The patient is noted to be hypertensive however he states he gets elevated BP any time he's in a hospital/doctor's office. On exam is he tender in the RUQ otherwise has no signs of peritonitis. He denies any new onset of fevers, chills, CP, or SOB. The patient does have a surgical history of an umbilical hernia repair with mesh approximately 10 years ago. Principal Diagnosis acute cholecystitis Discharge Exam Physical Exam: awake/alert, no distress Respiratory: normal respiratory effort Gastrointestinal (Abdomen): Inspection/Auscultation: + abdominal surgical incision (c/d/i); abdomen not distended Discharge Data Allergies Allergy/AdvReac Type Severity Reaction Status Date / Time No Known Allergies Allergy NONE Unverified 07/05/24 07:22 Consultations 07/05/24 01:29 ED Decision to Admit Stat 07/05/24 03:35 Consult Hospitalist Routine Procedures Performed Operation Date: 07/05/24 07:50 Actual Procedures p Laparoscopic Cholecystectomy(Not Applicable) - Tenzin Starkey DO Ordered Studies 07/05/24 00:35 MR MRCP Stat Hospital Course (1) Acute cholecystitis: This is a 29 yo male who presented to the [facility] ED on 07/05/24 with abdominal pain. He originally went to [facility] and was going to be a direct admit but left and came to [facility]. Workup in the ED showed a WBC of 12.5 and elevation of his LFT. He underwent an MRCP that was negative for choledocholithiasis and concern for acute cholecystitis and cholelithiasis (see HPI for full details). The hospitalist service was consulted for assist with medical management and hypertension. Patient made NPO with IVF and booked for the OR. On 07/05/24 the patient went to the OR with Dr Starkey for a laparoscopic cholecystectomy. The patient tolerated the procedure well, see operative report for full details. Post operatively the patient's diet was advanced, pain managed on prn meds, and incisions clean/dry/intact. On POD#1 the patient was deemed stable for discharge to home. He was given a prescription for antihypertensive medication and narcotic pain medication. The patient was given discharge instructions, follow up recommendations, and return precautions. Total Time Total Time Spent Total Time Spent (In Minutes): 15 Discharge Plan Discharge Items Patient Disposition: Home - Self-Care Reason For Visit: ACUTE CHOLECYSTITIS Discharge Diagnosis: laparoscopic cholecystectomy Activity: Per Instructions section Lifting: No more than 10 pounds Bathing Comment: may shower; no soaking in tubs/pools x 2 weeks Exercise/Sports: Wait until after follow-up appointment Driving/Machine Use: no driving while on narcotics for pain Non-emergency contact: Surgeon Call non-emergency contact if: you have any medication questions, your symptoms worsen, your pain is not controlled, your pain is worsening, your pain is unusual for you, you have a fever, your temperature is above 101.5, your wound has increased redness, your wound has increased drainage and your wound pain has increased Follow-up/Referrals: Tenzin Starkey, [Surgeon] - (please call to schedule follow up in the office within 10-14 days) Jose L Jacobo MD [Primary Care Provider] - (Please follow up with your PCP within 1 week as you have been started on a new medicine called amlodipine for blood pressure management) Diet: Regular Addtl Attending Provider Instructions: SPECIAL CARE INSTRUCTIONS: * You have skin glue over your incisions called dermabond. you may shower with this on. It will tend to dissolve and fall off within a couple weeks. Do not pic k at the skin glue * You may shower 07/06 . NO soaking in pools or baths for 2 weeks * No lifting greater than 10lbs. No strenuous exercise until cleared by surgeon. Light walking is accepted. * No driving while taking narcotic pain medication; wait at least 3 days * No drinking alcohol while taking narcotic pain medication * May use Ibuprofen/Tylenol over the counter for pain as tolerated. Do not exceed 3grams of Tylenol per 24 hours * Expect some swelling and bruising. * Diet- you may resume your regular diet The hospitalist team was consulted on your case while you were admitted to the hospital. You have been started on a new medicine called amlodipine for blood pressure control. the dose you will be prescribed is 2.5mg daily. Please follow up with your PCP within 1 week to ensure you are tolerating this medication Call your doctor if: * Temperature above 101 degrees, nausea/vomiting, fever/chills * Pain not relieved by pain medicine ordered * There is increased drainage or redness from any incision * You have any unanswered questions or concerns [phone]. FOLLOW UP VISIT: If not already scheduled, please call the office for a follow-up visit. Office Pending Studies at Discharge: Yes Studies:: surgical pathology Stand-Alone Forms: My [facility], Work/School Release, Smoking Cessation Medications and DC Order Prescriptions: New oxycodone 5 mg tablet 5 - 10 mg PO .[id number] PRN (Reason: pain, for initial therapy, max 6 tabs per day) Qty: 15 0RF amlodipine [Norvasc] 2.5 mg tablet 2.5 mg PO DAILY Qty: 30 0RF Discharge Orders: Discharge Order (Routine); Ordered 07/06/24 Ordered By: Precious Varner/Other Patient Handouts: Cholecystectomy Admission Data Admit Date/Time: 07/05/24 01:26 Attending Provider: Tenzin Starkey Admit Provider: Tenzin Starkey Primary Care Provider: Jose L Jacobo Other Providers: Tenzin Starkey; Liv Salgado; Karina Nicholas I.; Pardeep Franz; Cheikh Fallon; Mikayla Guerra; Marielos Christian; Shannan Franco; Poncho Bird; Babar Wise; Agustín Barraza; Lorne Huitron; Naa Victor; Kit Martino; Dalton Higgins; Madiha Kennedy; Helene Collazo; Fatmata Ledbetter; Kanika Norris; Umberto Garcia; Salina Goff I.; Henrique Bailey; Hank Farfan; Jon Irving; Frederick Rodgers; Samuel An; Kenneth Garcia; Tracey Vanegas; Chantel Stevenson; Raulito Wiseman; Mukesh Beverly; Aki Hair; Henrique Alarcon; Romel Katz; Douglas Chávez; Maxine Nicole; Mani Real Other Interventions: Discharge Summary Assessment (RN) Last Done: 07/06/24 11:17 Coding Level of Care Code 29155 IN/OBS DISCH 30 MIN/LESS Diagnoses Acute cholecystitis K81.0
== END 2024-07-06 11:50 | disposition home or self-care (01) ==
LOC: ED 00:16 → 3E 00:16